=== PATIENT | male | born 1950 | race Caucasian/White ===

== ENCOUNTER → 2020-04-05 11:24 | Outpatient (BNVA) | payer MEDICARE, OTHER, SELFPAY | PROVIDERS: Family Provider Internal Medicine; PCP Internal Medicine; Referring Provider Internal Medicine; Visit Provider Podiatrist Foot & Ankle Surgery | DX: M25.579 Pain in unspecified ankle and joints of unspecified foot (principal) | CPT/HCPCS: 73600; 73620 ==

== ENCOUNTER 2021-05-11 14:17 | Emergency (ER) | payer OTHER, MEDICARE, SELFPAY ==
--- NOTE | 2021-05-11 14:19 | W.ED.GENADLT ---
HPI - General Adult General: Chief complaint: Back Pain/Injury Stated complaint: SI DUE TO ALOT OF PAIN Time Seen by Provider: 05/11/21 14:18 History of Present Illness: HPI narrative: Mr. Gutierrez is a 70-year-old gentleman with significant past medical history of chronic pain secondary to stroke 8 years ago. He reports pain since the initial stroke that is primarily on the left side of his body. He has fentanyl patches and gabapentin at home and as needed Flexeril however his pain has gradually worsened over long time. It disrupts his lizzeth in life as well as ability to sleep. He has found that chewing on marijuana helps with his pain however the prison will not allow him to do this. He denies new changes in his pain which is moderate to severe in intensity. He denies recurrent injury or fall. No other medical complaints at this time. He is in a prison and reports that he has lost everything since that stroke and has nothing left Review of Systems General: Reports: 10 or more systems reviewed and unremarkable except in HPI and below Narrative: CONSTITUTIONAL: denies fever, fatigue, weakness EYES - denies pain, denies loss of vision EARS - denies ear issues. NOSE - denies congestion or rhinorrhea. THROAT - denies sore throat or difficulty swallowing. CARDIOVASCULAR - denies chest pain and palpitations RESPIRATORY - denies shortness of breath and cough GASTROINTESTINAL - denies abdominal pain, no nausea vomiting, no changes in bowel habits GENITOURINARY - denies dysuria or urinary frequency MUSCULOSKELETAL- see HPI SKIN - denies rashes or new changed skin lesions NEUROLOGIC - see hpi HEMATOLOGIC/LYMPHATIC - denies easy bruising or lymphadenopathy. PFSH ED PFSH: Medical History BPH (benign prostatic hyperplasia) CVA (cerebral vascular accident) Dyslipidemia Hemiplegia HTN (hypertension) Hypothyroidism PTSD (post-traumatic stress disorder) SSS (sick sinus syndrome) Tobacco abuse Surgical History Status cardiac pacemaker Social History Smoking and tobacco status: current every day smoker Alcohol intake: current Housing: Retirement Marital status: Physical Exam Narrative: EXAM NARRATIVE: GENERAL/CONSTITUTIONAL - well-appearing. No acute distress. Eyes - PERRL, no conjunctival injection ENMT - Atraumatic external nose and ears. Moist mucous membranes NECK - supple. trachea midline CARDIOVASCULAR - regular rate and rhythm. Peripheral pulses 2+ and equal RESPIRATORY -clear to auscultation bilaterally. No retractions or accessory muscle use. ABDOMEN/GI - Nontender/Nondistended. No tenderness to percussion or evidence of peritonitis MSK - Extremities without obvious deformity or tenderness to palpation SKIN - Warm, Dry NEURO - alert and appropriately oriented. baseline weakness and sensory changes Course ED course: - Patient was seen and evaluated by me at bedside - Patient placed on cardiac monitors, IV access obtained - Initial evaluation notable for no acute distress, nontoxic appearance. - Labs notable for no significant abnormality requiring acute intervention -Psychiatry service consulted and came to evaluate the patient. Patient safe for discharge - Upon serial reexamination after treatment the patient was transiently improved with analgesia - Based on patient history, evaluation, labs, and imaging as interpreted the most likely cause of the patient's condition is chronic pain and psychiatric concerns - The results of ED evaluation were given to the patient including prescriptions and/or symptomatic cares (if applicable) including appropriate and responsible use, followup plan, and return precautions. The patient verbalized understanding and felt safe for discharge. - Patient discharged in satisfactory condition. Vital Signs: Vital signs: Vital Signs Pulse Rate 78 05/12/21 01:18 Respiratory Rate 20 H 05/12/21 01:18 Blood Pressure 156/88 05/12/21 01:18 Pulse Oximetry 98 05/12/21 01:18 MDM - General Adult Medical Records: Attestation: I reviewed the patient's medical records. Lab Data: Attestation: I reviewed the patient's lab results. Labs: Lab Results 05/11/21 05/11/21 Range/Units 16:33 16:33 WBC 8.7 (4.0-10.0) 10^3/ uL RBC 5.03 (4.1-5.3) 10^6/u L Hgb 14.6 (11.7-16.6) g/dL Hct 44.6 (42.0-52.0) % MCV 88.7 (80-94) fl MCH 29.0 (28.0-34.0) pg MCHC 32.7 (30.0-36.0) g/dL RDW 13.4 (12.1-15.1) % Plt Count 231 (130-400) 10^3/c mm MPV 11.8 H (7.4-10.4) fL Neut % (Auto) 61.2 % Lymph % (Auto) 25.8 % [place] % (Auto) 9.0 % Eos % (Auto) 2.8 % Baso % (Auto) 1.0 % Neut # (Auto) 5.33 (1.8-7.7) 10^3/u L Lymph # (Auto) 2.3 (0.8-4.8) 10^3/u L [place] # (Auto) 0.8 (0.2-0.9) 10^3/u L Eos # (Auto) 0.2 (0.0-0.8) 10^3/u L Baso # (Auto) 0.1 (0.0-0.1) 10^3/u L Nucleated RBC % (a uto) 0 % Nucleated RBCs # 0.0 /100WBC Sodium 141 (136-145) mmol/L Potassium 4.1 (3.5-5.1) mmol/L Chloride 105 (98-107) mmol/L Carbon Dioxide 22 (22-29) mmol/L Anion Gap 18.1 (5-19) BUN 14 (8-23) mg/dL Creatinine 0.5 L (0.7-1.2) mg/dL GFR Calculation Not Reportable Glucose 96 (65-115) mg/dL Calculated Osmolal ity 292 (285-295) mOsm/k g Calcium 9.3 (8.5-10.5) mg/dL Total Bilirubin 0.2 (0.15-1.2) mg/dL AST 34 (0-40) U/L ALT 34 (0-41) U/L Alkaline Phosphata se 44 (40-130) IU/L Total Protein 7.5 (6.6-8.7) g/dL Albumin 3.8 (3.5-5.2) g/dL Globulin 3.7 (1.3-4.6) g/dL TSH 0.75 (0.27-4.20) uIU/ mL Salicylates < 0.3 L (3-10) mg/dL Acetaminophen < 5.0 L (10-30) ug/mL EKG Data^: EKG 1: Attestation: I personally reviewed and interpreted this EKG as follows: EKG interpretation date: 05/11/21 EKG interpretation time: 15:31 Interpretation: 12 lead shows regular sinus rhythm at rate of 69 VT 212, QRS 98, QTc 459 Normal axis Interpretation: sinus rhythm. 1st degree AV block Discharge Plan Discharge Patient Disposition: [facility] Clinical Impression: Chronic pain, CVA (cerebral vascular accident) Condition: Stable Discharge Orders: Discharge ED (Routine); Ordered 05/11/21 Ordered By: Wero Damian Referrals: Pedro Aguilar [Primary Care Provider] - Discharge Diet: Usual diet Discharge Activity: Resume usual activity Patient Instructions: Chronic Pain (ED), Opioid Safety Activity Restrictions/Additional Instructions: Thank you for visiting the emergency department. You were seen and evaluated for increased pain resulting in suicidal statements. You will be given a prescription for opioid analgesia and we recommend follow-up with chronic pain management. Please return to the emergency department for thoughts of hurting herself or others, or anything else that you are concerned about and feel needs emergency department evaluation. Please follow-up with your primary care provider. Please follow-up with your therapist. Coding Level of Care Code ED Agricultural Research Director for Grace Mena
[2021-05-11 14:29] VITALS: BP 168/119; PULSE 72; RESP 16; O2SAT 97; BMI 29.8
[2021-05-11 14:38] VITALS: BP 155/103; PULSE 74; O2SAT 97
--- NOTE | 2021-05-11 14:38 | ECG_ITS ---
[facility] Test Date: 2021-05-11 Pat Name: Torey Gutierrez Department: Room: Gender: Male Allergy And Immunology Specialist: : [id number] Requested By: Wero Damian Order Number: [id number] Vivek MD: Patricia Garcia M.D. Measurements Intervals Continental Rate: 69 P: 150 NH: 212 QRS: 53 QRSD: 98 T: 46 QT: 427 QTc: 459 Interpretive Statements SINUS RHYTHM WITH FIRST DEGREE AV BLOCK NONSPECIFIC ST & T-WAVE ABNORMALITY Compared to ECG 01/01/2018 18:58:54 T-wave abnormality now present Electronically Signed On 05-12-2021 8:58:22 CDT by Patricia Garcia M.D. [id number]
[2021-05-11] MEDS: oxyCODONE 5 mg IR Tab/Cap PO ×2 (14:45→19:22)
[2021-05-11 17:11] LABS: Basophils # 0.1 10^3/uL (0.0-0.1); Eosinophils # 0.2 10^3/uL (0.0-0.8); Eosinophils % 2.8 %; Hematocrit 44.6 % (42.0-52.0); Hemoglobin 14.6 g/dL (11.7-16.6); Lymphocytes # 2.3 10^3/uL (0.8-4.8); Lymphocytes % 25.8 %; Mean Corpuscular HGB Conc 32.7 g/dL (30.0-36.0); Mean Corpuscular Volume 88.7 fl (80-94); Mean Platelet Volume 11.8 fL (7.4-10.4); Monocytes # 0.8 10^3/uL (0.2-0.9); Neutrophils # 5.33 10^3/uL (1.8-7.7); Neutrophils % 61.2 %; Nucleated Red Blood Cells % 0 %; Platelet Count 231 10^3/cmm (130-400); Red Blood Count 5.03 10^6/uL (4.1-5.3); Red Cell Distribution Width 13.4 % (12.1-15.1); White Blood Count 8.7 10^3/uL (4.0-10.0)
[2021-05-11 17:55] LABS: Alanine Aminotransferase 34 U/L (0-41); Albumin Level 3.8 g/dL (3.5-5.2); Alkaline Phosphatase 44 IU/L (40-130); Anion Gap 18.1 (5-19); Aspartate Amino Transferase 34 U/L (0-40); Blood Urea Nitrogen 14 mg/dL (8-23); Calcium 9.3 mg/dL (8.5-10.5); Carbon Dioxide 22 mmol/L (22-29); Chloride 105 mmol/L (98-107); Globulin 3.7 g/dL (1.3-4.6); Glucose 96 mg/dL (65-115); Osmolality Calculated 292 mOsm/kg (285-295); Potassium 4.1 mmol/L (3.5-5.1); Sodium 141 mmol/L (136-145); Thyroid Stimulating Hormone 0.75 uIU/mL (0.27-4.20); Total Bilirubin 0.2 mg/dL (0.15-1.2); Total Protein 7.5 g/dL (6.6-8.7)
[2021-05-11 17:58] LABS: Acetaminophen < 5.0 ug/mL (10-30); Salicylate < 0.3 mg/dL (3-10)
--- NOTE | 2021-05-11 18:37 | P.CONIM_ITS ---
Providers/Reason for Consult Consulting Physican/Specialty*: Margarito Acevedo MD/psychiatry Reason for Consult*: Statements that he cannot go on living this way, assessment for suicidal risk Primary Care Provider: Pedro Aguilar Psych Consult HPI History of Present Illness Torey Gutierrez is a 70 year old male with a history of stroke who presented to the ED for pain. Dr. Damian asked me to see him because he had made some statements that, due to the pain, he could not go on living this way. The patient does report that he said this, but denies any urge or intention to end his own life. He explained that he lives in a care home, has had a stroke, and neither has the means nor the ability to end his life, even if he wanted to. He does say he has been feeling depressed and in pain and needs help feeling better. 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 It is clear that this is a loss, that he is no longer able to do this work. He has a therapist through the [place], with plans to see her tomorrow morning at 930. PFSH NPU PFSH: Medical History (Updated 05/12/21 @ 12:42 by Margarito Acevedo MD) BPH (benign prostatic hyperplasia) CVA (cerebral vascular accident) Dyslipidemia Hemiplegia HTN (hypertension) Hypothyroidism PTSD (post-traumatic stress disorder) SSS (sick sinus syndrome) Tobacco abuse Surgical History Status cardiac pacemaker Social History Smoking and tobacco status: current every day smoker Alcohol intake: current Housing: Skilled Nursing Marital status: Mental Status Exam MSE Comments: I met with the patient in the emergency room, and he was dressed in hospital scrubs and appropriately groomed. He was agitated, and in pain, but cooperative, interactive, and made good eye contact. Some psychomotor agitation. Speech is at a regular rate and rhythm, normal volume, good articulation, not pressured. Alert, oriented to person, place, time, situation. Attention and concentration were intact to exam. Memory is adequate for exam. Mood is depressed and anxious. Affect is distressed and anxious. Thought process is logical and goal-directed. Thought content: Denies auditory and visual hallucinations. No delusions or paranoia are noted. No current suicidal ideation, and no homicidal ideation. He does not want to . But he does want to be out of pain. Fund of knowledge is intact to exam. Language is intact to exam. Insight and judgment appear to be fair. Impulse control is fair as well. Vitals/I&O/Wt Last Vital Signs Pulse 78 05/12/21 01:18 Resp 20 H 05/12/21 01:18 BP 156/88 05/12/21 01:18 Pulse Ox 98 05/12/21 01:18 Weight last 48 hrs Weight 99.79 kg A&P Assessment and plan (1) Adjustment reaction with anxiety and depression: Status: Acute (2) Chronic pain: Status: Acute (3) Equinus contracture of left ankle: Status: Acute (4) CVA (cerebral vascular accident): Status: Acute Additional A&P Information The patient is suffering because his pain is not adequately relieved at the current time. Is also lost some of the meaning of his life due to the di sability caused by his stroke. [facility], and will see her tomorrow morning via televideo. He will talk with her about some of these issues. He also has access to psychiatric provider for psychiatric medication management. His risk of suicide is low, in part because he neither has the means nor the ability to accomplish it. In addition, he has no intention of killing himself at this time. Attestations NPU Medical Necessity Statement*: See ED provider note Coding Level of Care Code Acute Stringed Instrument Repairer for Grace Mena Diagnoses Adjustment reaction with anxiety and depression F43.23 Chronic pain G89.29 Equinus contracture of left ankle M24.572 CVA (cerebral vascular accident) I63.9
--- NOTE | 2021-05-11 22:30 | PC.NURSE ---
PT CALM, COOPERATIVE, DENIES SI/HI. REPORTS PAIN MEDICATION HAS HELPED WITH BACK PAIN AND IS GLAD SOMEONE IS FINALLY HELPING ME . PT HAS NOT EXHIBITED ANY AGGRESSIVE BEHAVIORS AND CONTINUES TO STATE, I NEED SOMEONE TO HELP ME WITH THIS PAIN! REPORT GIVEN TO [facility] STAFF, KAREN. ATTEMPTING TO ESTABLISH AN ETA FOR TRANSPORTATION AND PT'S DEPARTURE/ARRIVAL AT NURSING FACILITY.
--- NOTE | 2021-05-11 23:45 | PC.NURSE ---
MULTIPLE PHONE CALLS TO [facility] BY DEENA EASON, IN ORDER TO ASSIST IN COORDINATING A SUCCESSFUL DISCHARGE PLAN. PLAN IS TO DC TO [facility] VIA [facility]SPORT[facility].
[2021-05-12 01:18] VITALS: BP 156/88; PULSE 78; RESP 20; O2SAT 98
== END 2021-05-12 01:18 ==
PROVIDERS: Emergency Provider Emergency Medicine; PCP Internal Medicine
DX: G89.29 Other chronic pain (principal); I63.9 Cerebral infarction, unspecified; E78.5 Hyperlipidemia, unspecified; Z86.73 Personal history of transient ischemic attack (TIA), and cerebral infarction without residual deficits; I10 Essential (primary) hypertension; F17.210 Nicotine dependence, cigarettes, uncomplicated
CPT/HCPCS: 80053; 80307; 84443; 85025; 93005; 99283

== ENCOUNTER → 2022-04-18 09:21 | Outpatient (BNVA) | payer OTHER, SELFPAY | PROVIDERS: PCP Internal Medicine; Visit Provider Podiatrist Foot & Ankle Surgery | DX: M24.572 Contracture, left ankle (principal); I73.9 Peripheral vascular disease, unspecified; L60.3 Nail dystrophy; Z79.84 Long term (current) use of oral hypoglycemic drugs | CPT/HCPCS: 11721 ==